=== PATIENT | female | born 1940 | race Caucasian/White ===

== ENCOUNTER 2016-05-12 11:28 | Outpatient (CLI) | payer MEDICARE, OTHER | END 2016-05-12 11:29 | disposition home or self-care (01) | DX: G47.33 Obstructive sleep apnea (adult) (pediatric) (principal) | CPT/HCPCS: 99214; G0463 ==

== ENCOUNTER 2016-06-09 09:15 | Outpatient (CLI) | payer MEDICARE, OTHER | END 2016-06-09 09:16 | disposition home or self-care (01) | DX: G47.33 Obstructive sleep apnea (adult) (pediatric) (principal) | CPT/HCPCS: 99214; G0463 ==

== ENCOUNTER 2016-09-08 08:39 | Outpatient (CLI) | payer MEDICARE, OTHER | END 2016-09-08 08:40 | disposition home or self-care (01) | LOC: SC 08:39 | PROVIDERS: ATTEND Nurse Practitioner Family | DX: G47.33 Obstructive sleep apnea (adult) (pediatric) (principal); G47.23 Circadian rhythm sleep disorder, irregular sleep wake type | CPT/HCPCS: 99214; G0463; 99212 ==

== ENCOUNTER 2016-09-17 08:00 | Outpatient (CLI) | payer MEDICARE, OTHER ==
[2016-09-17 19:22] LABS: ALBUMIN/GLOBULIN RATIO 1.6 (1.0-2.2); BILIRUBIN,TOTAL 0.7 mg/dL (0.2-1.0); BUN - BLOOD UREA NITROGEN 16 mg/dL (6-20); CALCIUM 9.4 mg/dL (8.5-10.3); CARBON DIOXIDE - CO2 28 mmol/L (21-32); CHLORIDE 98 mmol/L (101-111); CHOL/HDL RATIO 2.3 (<4.4); CHOLESTEROL 185 mg/dL; CREATININE 0.8 mg/dL (0.4-1.0); GFR - MDRD 70 (>89); GLUCOSE 84 mg/dL (70-100); HDL CHOLESTEROL 79 mg/dL; LDL/HDL RATIO 1.2 (<4.4); POTASSIUM 4.1 mmol/L (3.5-5.0); SODIUM 134 mmol/L (135-145); TOTAL PROTEIN 6.8 g/dL (6.7-8.2); TRIGLYCERIDES 45 mg/dL; VLDL CHOLESTEROL 9 mg/dL
[2016-09-17 19:40] LABS: BASOPHILS # (AUTO) 0.1 10^3/uL (0.0-0.1); EOSINOPHILS # (AUTO) 0.2 10^3/uL (0.0-0.7); EOSINOPHILS % (AUTO) 4.2 %; HCT - HEMATOCRIT 40.7 % (37.0-47.0); HGB - HEMOGLOBIN 13.4 g/dL (12.0-16.0); LYMPHOCYTES # (AUTO) 1.7 10^3/uL (1.5-3.5); LYMPHOCYTES % (AUTO) 30.6 %; MEAN CORPUSCULAR HEMOGLOBIN 29.6 pg (27.0-31.0); MEAN CORPUSCULAR HGB CONC 32.9 g/dL (32.0-36.0); MEAN PLATELET VOLUME 8.6 fL (7.9-10.8); MONOCYTES # (AUTO) 0.7 10^3/uL (0.0-1.0); MONOCYTES % (AUTO) 12.4 %; NEUTROPHILS # (AUTO) 2.9 10^3/uL (1.5-6.6); NEUTROPHILS % (AUTO) 51.8 %; NUCLEATED RED BLOOD CELLS AUTO 0.1 /100WBC; RED BLOOD COUNT 4.52 10^6/uL (4.20-5.40); UNCORRECTED WHITE BLOOD COUNT 5.6 x10^3/uL; WHITE BLOOD COUNT 5.6 x10^3/uL (4.8-10.8)
== END 2016-09-17 08:01 | disposition home or self-care (01) ==
LOC: LAB.R 08:00
PROVIDERS: ATTEND Internal Medicine
DX: E03.9 Hypothyroidism, unspecified (principal); I10 Essential (primary) hypertension; Z79.899 Other long term (current) drug therapy
CPT/HCPCS: 80053; 80061; 84443; 85025

== ENCOUNTER 2016-09-23 08:43 | Outpatient (CLI) | payer MEDICARE, OTHER ==
--- NOTE | 2016-09-23 11:29 | DEXA Report ---
DEXA SCAN: 09/23/2016 CLINICAL INDICATION: Postmenopausal. TECHNIQUE: Dual energy x-ray absorptiometry (DXA) was performed on a [employer] system. Regions measured are the AP spine, femoral neck, and, if needed, forearm. COMPARISON: None. In accordance with the International Society for Clinical Densitometry (ISCD) guidelines, data from previous exams may be reanalyzed using current recommendations and techniques. This is done to allow a more accurate basis for comparison with the current study. FINDINGS: The data for the lumbar spine is as follows: REGION BMD (g/cm/cm) T-SCORE Z-SCORE L1 0.827 -2.5 -0.4 L2 0.938 -2.2 -0.1 L3 1.090 -0.9 1.2 L4 1.085 -1.0 1.1 TOTAL 0.996 -1.5 0.6 NOTE: All evaluable vertebrae are used for classification. The data for the hip is as follows: REGION BMD (g/cm/cm) T-SCORE Z-SCORE Neck 0.787 -1.8 0.3 TOTAL 0.792 -1.7 0.3 NOTE: The femoral neck or total proximal femur, whichever is lowest, is used for classification. IMPRESSION: THE WHO CLASSIFICATION BASED ON THE INTERNATIONAL REFERENCE STANDARD IS OSTEOPENIA. THE FRACTURE RISK IS INCREASED. RECOMMENDATION: Patients with diagnosis of osteoporosis or osteopenia should have regular bone mineral density assessment. For those eligible for Medicare, routine testing is allowed once every 2 years. Testing frequency can be increased for patients who have rapidly progressing disease or for those who are receiving medical therapy to restore bone mass. COMMENT: World Health Organization (WHO) definitions for osteoporosis and osteopenia: NORMAL BMD: T-score at -1.0 or higher, fracture risk is low. OSTEOPENIA BMD: T-score between -1.0 and -2.5, fracture risk is increased. OSTEOPOROSIS BMD: T-score at -2.5 or lower, fracture risk high. National Osteoporosis Foundation recommends: 1. Obtain adequate dietary calcium (at least 1200 mg per day) and vitamin D (400 -800 international units per day). 2. Participate, as appropriate, in regular weightbearing and muscle- strengthening exercise. 3. Avoid tobacco use and reduce alcohol and caffeine intake. 4. For more detailed information see the website at www.NOF.org. MTDD
== END 2016-09-23 08:44 | disposition home or self-care (01) ==
LOC: DI 08:43
PROVIDERS: ATTEND Internal Medicine
DX: M85.89 Other specified disorders of bone density and structure, multiple sites (principal)
CPT/HCPCS: 77080

== ENCOUNTER 2016-10-02 13:34 | Outpatient (CLI) | payer MEDICARE, OTHER ==
--- NOTE | 2016-10-03 15:06 | Mammography Report ---
DIGITAL SCREENING MAMMOGRAM: 10/02/2016 CLINICAL INDICATION: A 76-year-old for screening. COMPARISON: 06/2014, 07/2011, 07/2010, 07/2009, 06/2008, 10/2006. TECHNIQUE: Routine CC and MLO projections were obtained of the breasts as well as bilateral laterall y exaggerated craniocaudal views. FINDINGS: The breasts again demonstrate heterogeneously dense fibroglandular parenchyma bilaterally. Punctate, typically benign calcifications are present. No suspicious masses, clustered microcalcif ications, or regions of architectural distortion are identified. IMPRESSION: BENIGN FINDINGS. RECOMMENDATION: Routine annual screening unless otherwise clinically indicated. BI-RADS category 2, benign findings. STANDARD QUALIFYING STATEMENTS 1. This examination was reviewed with the aid of Computer-Aided Detection (CAD). 2. A negative or benign imaging report should not delay biopsy if clinically suspicious findings are present. Consider surgical consultation if warranted. More than 5% of cancers are not identified by i maging. 3. Dense breasts may obscure an underlying neoplasm. JOB #: [id number] EXT JOB #:[id number]
== END 2016-10-02 13:35 | disposition home or self-care (01) ==
LOC: DI 13:34
PROVIDERS: ATTEND Internal Medicine
DX: Z12.31 Encounter for screening mammogram for malignant neoplasm of breast (principal)
CPT/HCPCS: 77067

== ENCOUNTER 2016-12-09 12:12 | Outpatient (CLI) | payer MEDICARE, OTHER ==
[2016-12-10 19:50] LABS: TEST RESULT REPORT
== END 2016-12-09 12:13 | disposition home or self-care (01) ==
LOC: LAB.R 12:12
PROVIDERS: ATTEND Internal Medicine
DX: R19.7 Diarrhea, unspecified (principal)
CPT/HCPCS: 81599; 82705; 83630; 87045; 87046; 87177; 87209; 87329; 87493

== ENCOUNTER 2017-04-29 09:12 | Day surgery (SDC) | payer MEDICARE, OTHER ==
[2017-04-29] MEDS ORDERED: LACTATED RINGERS 1,000 ML IV ONE (09:49)
[2017-04-29] MEDS ORDERED: fentaNYL 100 MCG/2 ML VIAL IVP ONE (10:18)
[2017-04-29] MEDS ORDERED: MIDAZOLAM 2 MG/2 ML VIAL IVP ONE (10:18)
--- NOTE | 2017-04-29 11:09 | PROCEDURE REPORT ---
DATE OF SERVICE: 04/29/2017 Physician: Agueda Garcia MD PROCEDURE PERFORMED: Colonoscopy. ENDOSCOPIST: Agueda Garcia MD PRIMARY CARE: Jason Tirado MD. INDICATION: Screening; last colonoscopy over 10 years ago. PREMEDICATIONS 1. Fentanyl 100 mcg. 2. Versed 5 mg intravenous titration. TOTAL SEDATION TIME: 27 minutes. DESCRIPTION: After informed consent was obtained, the patient was placed in left lateral decubitus position. The video colonoscope was introduced in the rectum and slowly advanced to the cecum. On slow withdrawal, mucosa was carefully examined. The scope was removed. The patient tolerated the procedure well. Of note is that the colon was extremely tortuous and required significant manipulation to get around. BLOOD LOSS: None. COMPLICATIONS: None. FINDINGS: Normal colonoscopy to cecum, though extremely tortuous. The patient is 76 and I would not suggest followup colonoscopy at her age and given the difficulty negotiating her colon. Besides she has had 2 negative colonoscopies 15 years apart. cc: Jason Tirado MD TD: 04/29/2017 11:08
[2017-04-29 11:32] VITALS: BP 124/71
== END 2017-04-29 09:13 | disposition home or self-care (01) ==
LOC: SDS 09:12
PROVIDERS: ATTEND Internal Medicine
PROC: 0DJD8ZZ Inspection of Lower Intestinal Tract, Via Natural or Artificial Opening Endoscopic (ICD-10-PCS; principal; 2017-04-29 10:00)
DX: Z12.11 Encounter for screening for malignant neoplasm of colon (principal); I10 Essential (primary) hypertension
CPT/HCPCS: G0121; J7120

== ENCOUNTER 2017-05-05 10:46 | Outpatient (CLI) | payer MEDICARE, OTHER | END 2017-05-05 10:47 | disposition home or self-care (01) | LOC: SC 10:46 | PROVIDERS: ATTEND Nurse Practitioner Family | DX: G47.33 Obstructive sleep apnea (adult) (pediatric) (principal) | CPT/HCPCS: 99214; G0463; 99212 ==

== ENCOUNTER 2017-09-24 08:00 | Outpatient (CLI) | payer MEDICARE, OTHER ==
[2017-09-24 15:54] LABS: BASOPHILS # (AUTO) 0.1 10^3/uL (0.0-0.1); EOSINOPHILS # (AUTO) 0.1 10^3/uL (0.0-0.7); EOSINOPHILS % (AUTO) 2.2 %; HGB - HEMOGLOBIN 14.3 g/dL (12.0-16.0); LYMPHOCYTES # (AUTO) 1.6 10^3/uL (1.5-3.5); LYMPHOCYTES % (AUTO) 27.4 %; MEAN CORPUSCULAR HEMOGLOBIN 29.7 pg (27.0-31.0); MEAN CORPUSCULAR HGB CONC 33.6 g/dL (32.0-36.0); MEAN CORPUSCULAR VOLUME 88.3 fL (81.0-99.0); MEAN PLATELET VOLUME 8.2 fL (7.9-10.8); MONOCYTES # (AUTO) 0.6 10^3/uL (0.0-1.0); NEUTROPHILS # (AUTO) 3.3 10^3/uL (1.5-6.6); NEUTROPHILS % (AUTO) 58.4 %; PLT - PLATELET COUNT 287 10^3/uL (130-450); WHITE BLOOD COUNT 5.7 x10^3/uL (4.8-10.8)
[2017-09-24 16:13] LABS: ALBUMIN 4.2 g/dL (3.2-5.5); ALBUMIN/GLOBULIN RATIO 1.3 (1.0-2.2); ALKALINE PHOSPHATASE 74 IU/L (42-121); ALT ALANINE AMINOTRANSFERASE 21 IU/L (10-60); AST ASPARTATE AMINOTRANSFERASE 21 IU/L (10-42); BUN - BLOOD UREA NITROGEN 17 mg/dL (6-20); CALCIUM 9.2 mg/dL (8.5-10.3); CARBON DIOXIDE - CO2 27 mmol/L (21-32); CHLORIDE 91 mmol/L (101-111); CHOL/HDL RATIO 2.1 (<4.4); CHOLESTEROL 249 mg/dL; CREATININE 0.9 mg/dL (0.4-1.0); GFR - MDRD 61 (>89); GLUCOSE 83 mg/dL (70-100); HDL CHOLESTEROL 117 mg/dL; LDL CHOLESTEROL,CALCULATED 118 mg/dL; SODIUM 129 mmol/L (135-145); TOTAL PROTEIN 7.4 g/dL (6.7-8.2); VLDL CHOLESTEROL 14 mg/dL
== END 2017-09-24 08:01 | disposition home or self-care (01) ==
LOC: LAB.R 08:00
PROVIDERS: ATTEND Internal Medicine
DX: M85.80 Other specified disorders of bone density and structure, unspecified site (principal); E03.9 Hypothyroidism, unspecified; I10 Essential (primary) hypertension
CPT/HCPCS: 80053; 80061; 83721; 84443; 85025

== ENCOUNTER 2017-11-02 09:08 | Outpatient (CLI) | payer MEDICARE, OTHER ==
[2017-11-02 15:53] LABS: CALCIUM 9.3 mg/dL (8.5-10.3); CREATININE 0.8 mg/dL (0.4-1.0)
== END 2017-11-02 09:09 | disposition home or self-care (01) ==
LOC: LAB.R 09:08
PROVIDERS: ATTEND Internal Medicine
DX: E87.1 Hypo-osmolality and hyponatremia (principal)
CPT/HCPCS: 80048

== ENCOUNTER 2018-01-27 08:45 | Outpatient (CLI) | payer MEDICARE, OTHER ==
[2018-01-27 14:13] LABS: CALCIUM 9.5 mg/dL (8.5-10.3); CREATININE 0.9 mg/dL (0.4-1.0)
== END 2018-01-27 23:59 | disposition home or self-care (01) ==
LOC: LAB.R 08:45
PROVIDERS: ATTEND Internal Medicine
DX: E87.1 Hypo-osmolality and hyponatremia (principal)
CPT/HCPCS: 80048

== ENCOUNTER 2018-05-26 13:04 | Outpatient (CLI) | payer MEDICARE, OTHER | END 2018-05-26 13:05 | disposition home or self-care (01) | LOC: SC 13:04 | PROVIDERS: ATTEND Nurse Practitioner Family | DX: G47.33 Obstructive sleep apnea (adult) (pediatric) (principal) | CPT/HCPCS: 99214; G0463; 99212 ==

== ENCOUNTER 2018-10-04 18:04 | Outpatient (CLI) | payer MEDICARE, OTHER ==
[2018-10-04 18:30] LABS: BASOPHILS # (AUTO) 0.1 10^3/uL (0.0-0.1); BASOPHILS % (AUTO) 0.8 %; EOSINOPHILS # (AUTO) 0.3 10^3/uL (0.0-0.7); EOSINOPHILS % (AUTO) 3.1 %; HGB - HEMOGLOBIN 14.1 g/dL (12.0-16.0); LYMPHOCYTES # (AUTO) 2.2 10^3/uL (1.5-3.5); LYMPHOCYTES % (AUTO) 24.8 %; MEAN CORPUSCULAR VOLUME 90.5 fL (81.0-99.0); MEAN PLATELET VOLUME 9.1 fL (7.9-10.8); MONOCYTES # (AUTO) 0.8 10^3/uL (0.0-1.0); MONOCYTES % (AUTO) 8.8 %; NEUTROPHILS # (AUTO) 5.5 10^3/uL (1.5-6.6); NEUTROPHILS % (AUTO) 62.4 %; PLT - PLATELET COUNT 275 10^3/uL (130-450); RED BLOOD COUNT 4.86 10^6/uL (4.20-5.40); WHITE BLOOD COUNT 8.8 x10^3/uL (4.8-10.8)
[2018-10-04 18:41] LABS: ALBUMIN 4.2 g/dL (3.2-5.5); ALBUMIN/GLOBULIN RATIO 1.3 (1.0-2.2); BILIRUBIN,TOTAL 0.5 mg/dL (0.2-1.0); CALCIUM 9.8 mg/dL (8.5-10.3); TOTAL PROTEIN 7.4 g/dL (6.7-8.2)
[2018-10-04 19:27] LABS: THYROID STIMULATING HORMONE 1.98 uIU/mL (0.34-5.60)
[2018-10-04 19:30] LABS: FREE T4 (FREE THYROXINE) 1.58 ng/dL (0.58-1.64)
== END 2018-10-04 18:05 | disposition home or self-care (01) ==
LOC: LAB 18:04
PROVIDERS: ATTEND Family Medicine
DX: I10 Essential (primary) hypertension (principal); E03.9 Hypothyroidism, unspecified; M19.90 Unspecified osteoarthritis, unspecified site
CPT/HCPCS: 36415; 80053; 84439; 84443; 84481; 85025

== ENCOUNTER 2018-12-15 08:00 | Outpatient (CLI) | payer MEDICARE, OTHER ==
[2018-12-15 12:20] LABS: BASOPHILS # (AUTO) 0.1 10^3/uL (0.0-0.1); BASOPHILS % (AUTO) 1.3 %; EOSINOPHILS # (AUTO) 0.2 10^3/uL (0.0-0.7); EOSINOPHILS % (AUTO) 3.1 %; HGB - HEMOGLOBIN 13.9 g/dL (12.0-16.0); LYMPHOCYTES # (AUTO) 1.3 10^3/uL (1.5-3.5); LYMPHOCYTES % (AUTO) 22.5 %; MEAN CORPUSCULAR HEMOGLOBIN 29.8 pg (27.0-31.0); MEAN CORPUSCULAR HGB CONC 32.3 g/dL (32.0-36.0); MEAN CORPUSCULAR VOLUME 92.3 fL (81.0-99.0); MEAN PLATELET VOLUME 10.1 fL (7.9-10.8); MONOCYTES # (AUTO) 0.6 10^3/uL (0.0-1.0); NEUTROPHILS # (AUTO) 3.4 10^3/uL (1.5-6.6); NEUTROPHILS % (AUTO) 61.9 %; PLT - PLATELET COUNT 308 10^3/uL (130-450); RED BLOOD COUNT 4.66 10^6/uL (4.20-5.40); RED CELL DISTRIBUTION WIDTH 13.6 % (12.0-15.0); WHITE BLOOD COUNT 5.6 x10^3/uL (4.8-10.8)
[2018-12-15 12:29] LABS: PT - PROTHROMBIN TIME 10.9 secs (9.9-12.6)
[2018-12-15 12:34] LABS: CALCIUM 9.5 mg/dL (8.5-10.3); CREATININE 0.9 mg/dL (0.4-1.0)
[2018-12-15 12:42] LABS: PARTIAL THROMBOPLASTIN TIME 31.7 secs (24.9-33.3)
== END 2018-12-15 23:59 | disposition home or self-care (01) ==
LOC: LAB.N 08:00
PROVIDERS: ATTEND Family Medicine
DX: Z01.812 Encounter for preprocedural laboratory examination (principal); I10 Essential (primary) hypertension; E03.9 Hypothyroidism, unspecified
CPT/HCPCS: 36415; 80048; 85025; 85610; 85730

== ENCOUNTER 2019-05-18 17:07 | Outpatient (CLI) | payer MEDICARE, OTHER | END 2019-05-18 17:08 | disposition home or self-care (01) | LOC: COV 17:07 | PROVIDERS: ATTEND Family Medicine | DX: R05 Cough (principal) ==

== ENCOUNTER 2019-05-24 11:00 | Outpatient (CLI) | payer MEDICARE, OTHER ==
[2019-05-24 11:16] LABS: BASOPHILS # (AUTO) 0.1 10^3/uL (0.0-0.1); BASOPHILS % (AUTO) 0.8 %; EOSINOPHILS # (AUTO) 0.1 10^3/uL (0.0-0.7); EOSINOPHILS % (AUTO) 0.8 %; HGB - HEMOGLOBIN 15.5 g/dL (12.0-16.0); LYMPHOCYTES # (AUTO) 1.2 10^3/uL (1.5-3.5); LYMPHOCYTES % (AUTO) 15.1 %; MEAN CORPUSCULAR HEMOGLOBIN 29.9 pg (27.0-31.0); MEAN CORPUSCULAR HGB CONC 33.5 g/dL (32.0-36.0); MEAN CORPUSCULAR VOLUME 89.2 fL (81.0-99.0); MONOCYTES # (AUTO) 0.7 10^3/uL (0.0-1.0); MONOCYTES % (AUTO) 9.2 %; NEUTROPHILS # (AUTO) 5.9 10^3/uL (1.5-6.6); NEUTROPHILS % (AUTO) 73.7 %; PLT - PLATELET COUNT 309 10^3/uL (130-450); RED BLOOD COUNT 5.19 10^6/uL (4.20-5.40); RED CELL DISTRIBUTION WIDTH 12.5 % (12.0-15.0); WHITE BLOOD COUNT 7.9 x10^3/uL (4.8-10.8)
[2019-05-24 11:30] LABS: ALBUMIN 4.8 g/dL (3.2-5.5); ALBUMIN/GLOBULIN RATIO 1.7 (1.0-2.2); BILIRUBIN,TOTAL 0.9 mg/dL (0.2-1.0); CALCIUM 9.8 mg/dL (8.5-10.3); CREATININE 0.9 mg/dL (0.4-1.0); TOTAL PROTEIN 7.7 g/dL (6.7-8.2)
--- NOTE | 2019-05-24 12:21 | XRAY Report ---
Reason: LAB ,SHORTNESS OF BREATH,BENIGN ESSENTIAL HYPER Procedure Date: 05/24/2019 Accession Number: [id number] / [id number] Procedure: XR - Chest 2 View X-Ray CPT Code: 99943 Final Report FULL RESULT: EXAM: CHEST RADIOGRAPHY EXAM DATE: 05/24/2019 11:31 AM. CLINICAL HISTORY: Wheezing, shortness of breath, benign essential hypertension. COMPARISON: None. TECHNIQUE: 2 views. FINDINGS: Lungs/Pleura: Moderate to large left pleural effusion obscuring slightly more than half of the left hemithorax. Dense left mid and lower lung opacification. No pneumothorax. Mediastinum: Heart is partly obscured although likely enlarged. Aorta is tortuous. Other: Degenerative changes of the thoracic spine and both shoulders. IMPRESSION: 1. Moderate to large left pleural effusion. 2. Dense left mid and lower lung opacification. Findings discussed with Dr. Brizuela at 1141 hrs on 05/24/2019. RADIA
--- NOTE | 2019-05-24 13:20 | CT Report ---
Reason: DECREASED BREATH SOUNDS, SOB Procedure Date: 05/24/2019 Accession Number: [id number] / [id number] Procedure: CT - CHEST WO CPT Code: Final Report FULL RESULT: EXAM: CT CHEST EXAM DATE: 05/24/2019 12:51 PM. CLINICAL HISTORY: DECREASED BREATH SOUNDS, SOB. COMPARISONS: None. TECHNIQUE: Routine helical CT imaging was performed through the chest. IV contrast: None. Reconstructions: Coronal and sagittal. In accordance with CT protocol optimization, one or more of the following dose reduction techniques were utilized for this exam: automated exposure control, adjustment of mA and/or KV based on patient size, or use of iterative reconstructive technique. FINDINGS: Lungs/Pleura: Large left pleural effusion is seen with CT density of 15 HU consistent with simple fluid. Resultant right lower lung predominant airspace consolidation is evident, a large component which likely reflects compressive atelectasis. Underlying process such as infection or malignancy within the consolidated lung cannot be excluded. No focal right-sided airspace consolidation. Indeterminate 5 mm right lower lobe pulmonary nodule (6/71). Mild bilateral central bronchial wall thickening is noted likely reflect and central airways disease.. No pneumothorax. Mediastinum: Focal calcification in the right thyroid without discernible nodule on CT. Normal heart size. No pericardial effusion. Mitral annular calcification noted. No pathologically enlarged mediastinal or hilar lymph nodes. Normal caliber thoracic aorta. Bones: Osteopenia. Multilevel degenerative disk disease in the spine. No focal suspicious osseous lesions. Visualized Abdomen: Unremarkable. Other: None. IMPRESSION: 1. Large left pleural effusion is seen with CT density of simple fluid. Diagnostic thoracentesis should be considered. 2. Left lower lung predominant consolidation is noted a large component of which likely reflects compressive atelectasis. Underlying process such as infection or malignancy not excluded within the consolidated lung. 3. No focal right-sided consolidation or right pleural effusion. 4. 5 mm right lower lobe pulmonary nodule is seen. Consider noncontrast chest CT in 12 months for follow-up per Fleischner Society guidelines. 5. No pathologic mediastinal or hilar lymphadenopathy is evident. RADIA
== END 2019-05-24 11:01 | disposition home or self-care (01) ==
LOC: LAB 11:00 → DI 11:01
PROVIDERS: ATTEND Family Medicine
DX: J90 Pleural effusion, not elsewhere classified (principal); J18.1 Lobar pneumonia, unspecified organism; R91.1 Solitary pulmonary nodule; I10 Essential (primary) hypertension; E03.9 Hypothyroidism, unspecified
CPT/HCPCS: 36415; 71046; 71250; 80053; 84443; 85025

== ENCOUNTER 2019-06-14 10:22 | Outpatient (CLI) | payer MEDICARE, OTHER ==
--- NOTE | 2019-06-15 09:44 | XRAY Report ---
Reason: PLEURAL EFFUSION Procedure Date: 06/14/2019 Accession Number: [id number] / [id number] Procedure: XR - Chest 2 View X-Ray CPT Code: 71831 Final Report FULL RESULT: EXAM: CHEST RADIOGRAPHY EXAM DATE: 06/14/2019 10:42 AM. CLINICAL HISTORY: PLEURAL EFFUSION. COMPARISON: CHEST 2 VIEW 05/24/2019 11:21 AM. TECHNIQUE: 2 views. FINDINGS: Lungs/Pleura: Compared to the prior study, there is a smaller residual moderate left pleural tissue with dense left lower lobe opacities. No pneumothorax. No significant right effusion. No new consolidations are identified. Lungs are hyperinflated. Mediastinum: Stable cardiomediastinal silhouette. Other: None. IMPRESSION: 1. Slight decrease in the size of the moderate left pleural effusion. No new right pleural effusion. No pneumothorax. 2. Dense retrocardiac opacities could represent atelectasis or infiltrates. RADIA
== END 2019-06-14 10:23 | disposition home or self-care (01) ==
LOC: DI 10:22
PROVIDERS: ATTEND Internal Medicine Sleep Medicine
DX: J90 Pleural effusion, not elsewhere classified (principal); R91.8 Other nonspecific abnormal finding of lung field
CPT/HCPCS: 71046

== ENCOUNTER 2019-06-30 13:30 | Outpatient (CLI) | payer MEDICARE, OTHER ==
--- NOTE | 2019-06-30 10:46 | SLEEP CARE CONSULTATION ---
Information from patient questionnaire entered by Nery Alvares. I have reviewed and concur with the information entered by Nery Alvares. This document represents the service I personally performed and the decisions made by me, Leola Johnson, RN, MSN, MEDICAL HOUSEKEEPER. History of Present Illness Service Date and Time: 06/30/2019 1000 Previous diagnosis: Mild, Obstructive Sleep Apnea-Hypopnea Syndrome AHI: 11.7 Reason for follow up: annual Equipment type: CPAP Equipment obtained from: [facility] (not recieving supplies in a timely manner -) Mask style: Nasal Mask brand: Respironics (Dreamwear) Backup mask available: Yes (old mask) Last cushion change: 3 weeks ago CPAP Compliance Data - Data Reviewed with Patient Average duration of nightly device use: 7h 34m Compliance rate %: 77.2 Current pressure setting (cmH2O): 9-12 Humidity settin Heated hose settin Average residual AHI: 3.0 Average large leak: 19m 14s Subjective Patient concerns: reports: dry mouth, nose, throat (occasional dry mouth that she feels is 1-2 times a month and probably due to mouth), other (settings). denies: aerophagia, mask discomfort, air blowing in eyes, mask leak noise, condensation in mask/hose, nasal congestion, epistaxis Observed to snore while using device: No (single ) Current pressure setting perceived as: comfortable (no change except no longer wakes to use the bathroom. She was not sleepy before CPAP use.) On therapy, patient: reports: other (no change except no longer has nocturia / was not tired before CPAP). denies: drowsiness while driving Initial [place] Sleepiness Scale score: 4 Allergies and Home Medications Home medication list reviewed: No (no changes / on antihypertension and thyroid) Review of Systems Review of systems same as previous: No (shortness of breath since [place] trip/2 thoracentesi / pulmomologist) Physical Exam Height: 5 ft 4 in Weight: 123 lb (home weight) Body Mass Index: 21.1 BMI Classification: Healthy weight Impression and Plan 1. Obstructive Sleep Apnea-Hypopnea Syndrome, mild, with good treatment compliance and good apnea control. On CPAP therapy, the patient has better sleep quality and is more rested overall. For supply concerns, if still problems getting equipment she is to contact my office to discuss options of needing to contact [employer] from office or transfer to another company. To reduce mask leaks, she is to change monthly instead of randomly. In addition, I discussed cleaning devices and recent FDA warning. Currently I do not recommend use of cleaning devices. Review of general cleaning of equipment discussed and clarified. Patient had recently watched a [employer] video about how to change settings on her CPAP and concerned she had changed hers wrong. I reviewed her compliance data with her and assured her all settings correct. In addition, we discussed methods to avoid supine sleep if unable to use CPAP as her apnea is more severe supine. Patient's apnea severity and rationale for treatment to reduce apnea, improve sleep quality and reduce cardiovascular and cerebrovascular events was reviewed. I also reviewed the benefit of consistent device use of CPAP for hypertension. I also discussed how significant weight change can affect apnea and her CPAP pressure. Symptoms to report discussed. * Continue auto CPAP pressure at 9-12 cmH2O * Change mask cushion monthly * Notify me if snoring with mask or feeling that the pressure is too much or too little * Contact this office if continued supply problems * Maintain weight * Call this office if any problems using CPAP * Return for follow up in 1 year , or sooner if concerns arise Visit Type: Telehealth Video (to reduce risk of Covid 19 exposure) Video Type: BringMeTheNews Patient Location: Home Location of Provider: Home Patient agrees to have their insurance billed: Yes Time Spent with Patient (minutes): 30 Provider Statement: I spent 100% of the Telehealth Video Call with the patient with greater than 50% spent counseling the patient and coordination of care.
== END 2019-06-30 13:31 | disposition home or self-care (01) ==
LOC: SC 13:30
PROVIDERS: ATTEND Nurse Practitioner Family
DX: G47.33 Obstructive sleep apnea (adult) (pediatric) (principal)

== ENCOUNTER 2019-12-13 13:40 | Outpatient (CLI) | payer MEDICARE, OTHER ==
[2019-12-13 18:54] LABS: THYROID STIMULATING HORMONE 1.46 uIU/mL (0.34-5.60)
[2019-12-13 18:56] LABS: FREE T3 2.95 pg/mL (2.5-3.9); FREE T4 (FREE THYROXINE) 1.42 ng/dL (0.58-1.64)
== END 2019-12-13 23:59 | disposition home or self-care (01) ==
LOC: LAB.WCP 13:40
PROVIDERS: ATTEND Family Medicine
DX: E03.9 Hypothyroidism, unspecified (principal)
CPT/HCPCS: 36415; 84439; 84443; 84481

== ENCOUNTER 2019-12-29 09:45 | Outpatient (CLI) | payer MEDICARE, OTHER ==
[2019-12-29 09:56] LABS: BASOPHILS # (AUTO) 0.1 10^3/uL (0.0-0.1); EOSINOPHILS # (AUTO) 0.6 10^3/uL (0.0-0.7); EOSINOPHILS % (AUTO) 7.2 %; LYMPHOCYTES # (AUTO) 1.8 10^3/uL (1.5-3.5); LYMPHOCYTES % (AUTO) 21.7 %; MEAN CORPUSCULAR HGB CONC 32.3 g/dL (32.0-36.0); MEAN PLATELET VOLUME 8.4 fL (7.9-10.8); MONOCYTES # (AUTO) 0.8 10^3/uL (0.0-1.0); MONOCYTES % (AUTO) 9.8 %; NEUTROPHILS % (AUTO) 59.7 %; PLT - PLATELET COUNT 440 10^3/uL (130-450); RED BLOOD COUNT 4.48 10^6/uL (4.20-5.40); RED CELL DISTRIBUTION WIDTH 13.7 % (12.0-15.0); WHITE BLOOD COUNT 8.4 x10^3/uL (4.8-10.8)
[2019-12-29 10:09] LABS: ALBUMIN 3.6 g/dL (3.2-5.5); BILIRUBIN,TOTAL 0.6 mg/dL (0.2-1.0); CALCIUM 9.4 mg/dL (8.5-10.3); CREATININE 0.6 mg/dL (0.4-1.0); TOTAL PROTEIN 7.2 g/dL (6.7-8.2)
== END 2019-12-29 09:46 | disposition home or self-care (01) ==
LOC: LAB 09:45
PROVIDERS: ATTEND Nurse Practitioner Adult Health
DX: C45.0 Mesothelioma of pleura (principal)
CPT/HCPCS: 36415; 80053; 85025

== ENCOUNTER 2020-01-08 13:01 | Outpatient (CLI) | payer MEDICARE, OTHER ==
--- NOTE | 2020-01-08 13:57 | Ultrasound Report ---
PROCEDURE: Chest INDICATIONS: MALIGNANT MESOTHELIOMA TECHNIQUE: Real-time scanning was performed, and a suitable site was marked by the mesh man for thoracentesis to be performed by the referring clinician. COMPARISON: None. FINDINGS: There is a moderate loculated pleural effusion spanning 10 cm x 6.43 m x 5.9 cm. The indwelling yaz ter within the pleural space is not seen. IMPRESSION: Moderate loculated pleural effusion. Nonvisualization of drainage catheter. Reviewed by: Mary Guerrier MD on 01/08/2020 12:55 PM [facility] Approved by: Mary Guerrier MD on 01/08/2020 12:55 PM [facility] Station ID: [id number]
== END 2020-01-08 13:02 | disposition home or self-care (01) ==
LOC: DI 13:01
DX: C45.9 Mesothelioma, unspecified (principal); J91.8 Pleural effusion in other conditions classified elsewhere
CPT/HCPCS: 76604

== ENCOUNTER 2020-03-14 16:34 | Outpatient (CLI) | payer MEDICARE, OTHER ==
--- NOTE | 2020-03-14 18:40 | XRAY Report ---
PROCEDURE: Chest 2 View X-Ray INDICATIONS: PLEURAL EFFUSION IN OTHER CONDITIONS TECHNIQUE: 2 view(s) of the chest. COMPARISON: 06/14/2019. FINDINGS: Surgical changes and devices: None. Lungs and pleura: Moderate-sized left-sided pleural effusion. Left basilar consolidation. Mediastinum: Mediastinal contours are normal. Heart size is normal. Bones and chest wall: No suspicious bony abnormalities. Soft tissues appear unremarkable. IMPRESSION: 1. Moderate-sized left-sided pleural effusion. 2. Left basal consolidation which could represent compressive atelectasis, aspiration or pneumonia. Reviewed by: Morelia Hatch MD, PhD on 03/14/2020 5:39 PM [facility] Approved by: Morelia Hatch MD, PhD on 03/14/2020 5:39 PM [facility] Station ID: [id number]
== END 2020-03-14 16:35 | disposition home or self-care (01) ==
LOC: DI.N 16:34
PROVIDERS: ATTEND Family Medicine
DX: J90 Pleural effusion, not elsewhere classified (principal); R91.8 Other nonspecific abnormal finding of lung field

== ENCOUNTER 2020-04-10 12:19 | Outpatient (CLI) | payer MEDICARE, OTHER ==
[2020-04-10 12:27] LABS: BASOPHILS # (AUTO) 0.1 10^3/uL (0.0-0.1); BASOPHILS % (AUTO) 0.8 %; EOSINOPHILS # (AUTO) 0.2 10^3/uL (0.0-0.7); EOSINOPHILS % (AUTO) 2.2 %; HGB - HEMOGLOBIN 13.9 g/dL (12.0-16.0); LYMPHOCYTES # (AUTO) 1.3 10^3/uL (1.5-3.5); LYMPHOCYTES % (AUTO) 12.3 %; MEAN CORPUSCULAR HEMOGLOBIN 28.7 pg (27.0-31.0); MEAN CORPUSCULAR HGB CONC 32.3 g/dL (32.0-36.0); MEAN CORPUSCULAR VOLUME 88.7 fL (81.0-99.0); MEAN PLATELET VOLUME 8.9 fL (7.9-10.8); MONOCYTES # (AUTO) 0.9 10^3/uL (0.0-1.0); NEUTROPHILS # (AUTO) 7.7 10^3/uL (1.5-6.6); NEUTROPHILS % (AUTO) 75.3 %; PLT - PLATELET COUNT 366 10^3/uL (130-450); RED BLOOD COUNT 4.85 10^6/uL (4.20-5.40); RED CELL DISTRIBUTION WIDTH 13.1 % (12.0-15.0); WHITE BLOOD COUNT 10.3 x10^3/uL (4.8-10.8)
[2020-04-10 12:31] LABS: PT - PROTHROMBIN TIME 11.5 secs (9.9-12.6)
[2020-04-10 12:38] LABS: PARTIAL THROMBOPLASTIN TIME 28.1 secs (24.9-33.3)
--- NOTE | 2020-04-10 14:23 | XRAY Report ---
PROCEDURE: Post Thoracentesis 1V CXR INDICATIONS: POST THORACENTESIS TECHNIQUE: One view of the chest was acquired. COMPARISON: Chest x-ray 2 view, . FINDINGS: Surgical changes and devices: None. Lungs and pleura: No pneumothorax. Small residual left pleural effusion. Lucency in the left lung ba se is noted, which could represent a small loculated hydropneumothorax component. There is increased interstitial marking in left lung. Mediastinum: Mediastinal contours appear normal. Heart size is increased. Bones and chest wall: No suspicious bony lesions. Overlying soft tissues appear unremarkable. IMPRESSION: 1. No pneumothorax. 2. Small residual left effusion. The left lung bases lucent which could represent small component of loculated hydropneumothorax. 3. Increased interstitial markings in left lung. 4. Moderate cardiomegaly. Reviewed by: Matheus Pichardo MD on 04/10/2020 2:22 PM PST Approved by: Matheus Pichardo MD on 04/10/2020 2:22 PM PST Station ID: [id number]
--- NOTE | 2020-04-10 14:41 | Ultrasound Report ---
PROCEDURE: Thoracentesis Puncture INDICATIONS: SHORTNESS OF BREATH TECHNIQUE: The indications, alternatives, benefits, risks, and complications of the procedure were explained to the patient. Written informed consent was obtained and placed in the chart. The chest was examined sonographically, and an appropriate site was chosen for thoracentesis. The skin was prepared and jodi ped in the usual sterile fashion, and 1% lidocaine was infiltrated from the skin down through the ple ural surface. A 19-gauge catheter-covered needle was then introduced into the pleural space, the cat heter was advanced and the needle was withdrawn, and thereafter pleural fluid was aspirated. The cat heter was then removed and a dressing was applied. COMPARISON: Chest x-ray 2 view, 03/14/2020. FINDINGS: Access site: Left hemithorax. Needle: One-Step centesis catheter with introducer needle. Fluid volume and description: 250 mL; yellow, slightly cloudy Fluid sent for diagnostic testing: Not requested by referring physician. Medications: 1% lidocaine for local anaesthesia. Complications: None; post-procedural chest radiograph is pending to assess for pneumothorax. IMPRESSION: Successful ultrasound-guided thoracentesis. The patient reports slight improvement in b reathing. Reviewed by: Matheus Pichardo MD on 04/10/2020 2:40 PM PST Approved by: Matheus Pichardo MD on 04/10/2020 2:40 PM PST Station ID: [id number]
== END 2020-04-10 12:20 | disposition home or self-care (01) ==
LOC: DI 12:19
PROVIDERS: ATTEND Nurse Practitioner
DX: C45.0 Mesothelioma of pleura (principal); J91.0 Malignant pleural effusion
CPT/HCPCS: 32555; 36415; 85025; 85610; 85730

== ENCOUNTER 2020-07-05 11:40 | Outpatient (CLI) | payer MEDICARE, OTHER ==
--- NOTE | 2020-07-05 12:03 | SLEEP CARE CONSULTATION ---
Information from patient questionnaire entered by Vijaya Gallegos. I have reviewed and concur with the information entered by Vijaya Gallegos. This document represents the service I personally performed and the decisions made by , Beatriz Weber ARNP. History of Present Illness Service Date and Time: 07/05/2020 1140 Previous diagnosis: Mild, Obstructive Sleep Apnea-Hypopnea Syndrome AHI: 11.7 (in 2016) Reason for follow up: annual (last seen 79560) Equipment type: CPAP Equipment obtained from: [facility] (getting supplies as needed) Mask style: Nasal Mask brand: Respironics (Dreamwear) Backup mask available: Yes (old mask) Last cushion change: 3 weeks ago Prior sleep studies: Yes Year and Where: 2016 - [facility] Type of Sleep Study: Polysomnography HPI additional information: OBEY GALLEGOS was diagnosed to have mild, AHI 11.7, obstructive sleep apnea- hypopnea syndrome and returns via Telehealth visit today for CPAP therapy annual follow-up. CPAP Compliance Data - Data Reviewed with Patient Average duration of nightly device use: 8 hr 16 min Compliance rate %: 98.9 (180 days) Current pressure setting (cmH2O): 9-12 Humidity settin Heated hose settin Average residual AHI: 2.1 Average large leak: 12 min 41 sec Subjective Patient concerns: reports: dry mouth, nose, throat (occasional, using chin strap). denies: aerophagia, mask discomfort, air blowing in eyes, mask leak noise, condensation in mask/hose, nasal congestion, epistaxis, other Observed to snore while using device: No Current pressure setting perceived as: comfortable On therapy, patient: reports: sleeping better, awakening more refreshed, being more awake and alert during the day, more rested overall. denies: drowsiness while driving Initial [place] Sleepiness Scale score: 4 (in 2016) Current [place] Sleepiness Scale score: 4 Allergies and Home Medications Home medication list reviewed: Yes Allergy and home medication list: Folic acid Chemotherapy stopped Tumeric Review of Systems Review of systems same as previous: No (Mesothelioma cancer) Physical Exam Vital signs obtained and entered by: Telehealth visit to reduce exposure during Covid pandemic Height: 5 ft 4 in Impression and Plan 1. Obstructive Sleep Apnea-Hypopnea Syndrome, mild, with good treatment compliance and good apnea control. On CPAP therapy, the patient has better sleep quality and is more rested overall. She states she occasionally was sleeping with her mouth open and was having some oral dryness. She used a makeshift chinstrap to keep her mouth closed and this has been working well. She does gets some soreness on the sides of her face from the material and asked what she could do. I advised her to call her DME supplier and have them send her a chinstrap to use. Hopefully this is more comfortable. She has a new diagnosis of Mesothelioma cancer and is on chemotherapy. Patient's apnea severity and rationale for treatment to reduce apnea, improve sleep quality and reduce cardiovascular and cerebrovascular events was reviewed. I also reviewed the benefit of consistent device use of CPAP for hypertension. * Continue auto CPAP pressure at 9-12 cmH2O * Notify me if snoring with mask or feeling that the pressure is too much or too little * Attempt to lose weight * Call this office if any problems using CPAP * Return for follow up in 1 year, or sooner if concerns arise Counseling Topics: Spare mask, Weight loss health impact Visit Type: Telehealth Video Video Type: VSee Patient Location: Home Location of Provider: Office Patient agrees and consents to this telehealth visit type: Yes Patient agrees to have their insurance billed: Yes Time Spent with Patient (minutes): 22 Provider Statement: I spent 100% of the Telehealth Video Call with the patient with greater than 50% spent counseling the patient and coordination of care.
== END 2020-07-05 11:41 | disposition home or self-care (01) ==
LOC: SC 11:40
PROVIDERS: ATTEND Nurse Practitioner Family
DX: G47.33 Obstructive sleep apnea (adult) (pediatric) (principal)

== ENCOUNTER 2020-12-07 07:00 | Outpatient (CLI) | payer MEDICARE, OTHER | END 2020-12-07 23:59 | disposition home or self-care (01) | LOC: LAB 07:00 | PROVIDERS: ATTEND Family Medicine | DX: R39.9 Unspecified symptoms and signs involving the genitourinary system (principal) | CPT/HCPCS: 87077; 87086; 87181 ==

== ENCOUNTER 2021-03-13 08:14 | Outpatient (CLI) | payer MEDICARE, OTHER ==
[2021-03-13 09:19] VITALS: BP 166/100
--- NOTE | 2021-03-13 09:19 | SLEEP CARE CONSULTATION ---
Information from patient questionnaire entered by Jake Locke MA. I have reviewed and concur with the information entered by Jake Locke MA. This document represents the service I personally performed and the decisions made by , Beatriz Weber ARNP. History of Present Illness Service Date and Time: 03/13/2021 0814 Previous diagnosis: Mild, Obstructive Sleep Apnea-Hypopnea Syndrome AHI: 11.7 (in 2015) Reason for follow up: other (8 MONTH F/U , RX FOR NEW MACHINE) Equipment type: CPAP Equipment obtained from: Other ([facility]; no supplies) Mask style: Nasal Backup mask available: Yes (old mask) Last cushion change: 3 weeks ago Prior sleep studies: Yes Year and Where: 2015 - [facility] Type of Sleep Study: Polysomnography HPI additional information: OBEY GALLEGOS was diagnosed to have mild, AHI 11.7, obstructive sleep apnea- hypopnea syndrome and returned today for CPAP therapy 8 month follow-up. Sleep Study - Results Type of Sleep Study: Polysomnography Prior sleep studies: Yes Year and Where: 2015 - [facility] CPAP Compliance Data - Data Reviewed with Patient Average duration of nightly device use: 8 HOURS 56 MINUTES Compliance rate %: 99.4 Current pressure setting (cmH2O): 9-12 Humidity settin Heated hose settin Average residual AHI: 1.7 Average large leak: 14 MINUTES 25 SECONDS Subjective Missed days of use due to: reports: travel Patient concerns: reports: air blowing in eyes, dry mouth, nose, throat (her mouth will fall open and she gets dry mouth). denies: aerophagia, mask discomfort, mask leak noise, condensation in mask/hose, nasal congestion, epistaxis, other Observed to snore while using device: No Current pressure setting perceived as: comfortable On therapy, patient: reports: sleeping better, awakening more refreshed, being more awake and alert during the day, more rested overall. denies: drowsiness while driving Initial [place] Sleepiness Scale score: 4 (in 2015) Current [place] Sleepiness Scale score: 1 (2021) Allergies and Home Medications Home medication list reviewed: Yes (Linparza for her Mesothelioma (1 week)) Review of Systems Review of systems same as previous: No (Mesothelioma (last 2 years)) Physical Exam Vital signs obtained and entered by: LAQUITA AMAYA Blood Pressure: 166/100 (LEFT, PULSE 107) Cuff size: wrist Heart Rate: 101 (WILL SEE DR FOR HHR) O2 Saturation: 92 (WITH PAPER MASK) Height: 5 ft 4 in Weight: 127 lb (WITH CLOTHES) Body Mass Index: 21.8 BMI Classification: Healthy weight Impression and Plan 1. Obstructive Sleep Apnea-Hypopnea Syndrome, mild, with excellent treatment compliance and good apnea control. On CPAP therapy, the patient has better sleep quality and is more rested overall. Patient has a Dreamstation and would like to get a new device that is not on the recall. Patient has already registered their device for the recall. Patient denies any black particles seen in machine or hoses, any unusual odors coming from device. Patient has not experienced any physical symptoms such as upper airway irritation, headache, skin or eye irritation, asthma, nausea/vomiting, difficulty breathing or chest pain. If patient is not able to sleep due to waking up choking, gasping for air or other respiratory distress that they may decide to continue using it until it is eithe r replaced or repaired. Since the patients current machine is at least 5 years old the patient is opting to update their device with a device that is not on the recall. Patient voiced understanding and agreement with plan.A DWO prescription will be made. Compliance guidelines for new device and follow up discussed. Patient would like to try a full face mask because she finds even with using a chin strap her mouth is coming open and causing dry mouth. Oral dryness can be reduced by adjusting humidity setting higher or heated hose lower or by adjusting both settings. Patient's apnea severity and rationale for treatment to reduce apnea, improve sleep quality and reduce cardiovascular and cerebrovascular events was reviewed. I also reviewed the benefit of consistent device use of CPAP for hypertension. 2. Elevated blood pressure in patient with hypertension. Her blood pressure was elevated at beginning of appointment was 166/100. After patient had been sitting in exam room and was no longer feeling rushed her blood pressure was 142/79 with a heart rate of 89. She was in a yoder to get to her appointment today and suffers shortness of breath from Mesothelioma. * Continue auto CPAP pressure at 9-12 cmH2O * Update device * Mask refitting for full face mask * Notify me if snoring with mask or feeling that the pressure is too much or too little * Maintain a healthy weight * Call this office if any problems using CPAP * Return for follow up one month after obtaining new device, or sooner if concerns arise Counseling Topics: Spare mask, Weight control Visit Type: In Office Time Spent with Patient (minutes): 24 Provider Statement: I spent 100% of the Face to Face Visit with the patient with greater than 50% spent counseling the patient and coordination of care.
== END 2021-03-13 08:15 | disposition home or self-care (01) ==
LOC: SC 08:14
PROVIDERS: ATTEND Nurse Practitioner Family
DX: G47.33 Obstructive sleep apnea (adult) (pediatric) (principal); I10 Essential (primary) hypertension
CPT/HCPCS: 99213; G0463; 99212

== ENCOUNTER 2021-03-15 07:16 | Outpatient (CLI) | payer MEDICARE, OTHER ==
[2021-03-15 11:51] LABS: BASOPHILS # (AUTO) 0.1 10^3/uL (0.0-0.1); BASOPHILS % (AUTO) 0.7 %; EOSINOPHILS # (AUTO) 0.1 10^3/uL (0.0-0.7); EOSINOPHILS % (AUTO) 0.9 %; HCT - HEMATOCRIT 36.7 % (37.0-47.0); HGB - HEMOGLOBIN 11.3 g/dL (12.0-16.0); LYMPHOCYTES # (AUTO) 1.2 10^3/uL (1.5-3.5); LYMPHOCYTES % (AUTO) 9.6 %; MEAN CORPUSCULAR HEMOGLOBIN 28.6 pg (27.0-31.0); MEAN CORPUSCULAR HGB CONC 30.8 g/dL (32.0-36.0); MEAN CORPUSCULAR VOLUME 92.9 fL (81.0-99.0); MONOCYTES # (AUTO) 1.4 10^3/uL (0.0-1.0); NEUTROPHILS # (AUTO) 9.7 10^3/uL (1.5-6.6); NEUTROPHILS % (AUTO) 76.9 %; PLT - PLATELET COUNT 565 10^3/uL (130-450); RED BLOOD COUNT 3.95 10^6/uL (4.20-5.40); RED CELL DISTRIBUTION WIDTH 15.5 % (12.0-15.0); WHITE BLOOD COUNT 12.6 x10^3/uL (4.8-10.8)
[2021-03-15 12:06] LABS: ALBUMIN 3.3 g/dL (3.2-5.5); ALBUMIN/GLOBULIN RATIO 0.8 (1.0-2.2); BILIRUBIN,TOTAL 0.3 mg/dL (0.2-1.0); CALCIUM 9.7 mg/dL (8.5-10.3); CREATININE 0.8 mg/dL (0.4-1.0); POTASSIUM 4.4 mmol/L (3.5-5.0); TOTAL PROTEIN 7.6 g/dL (6.7-8.2)
[2021-03-15 12:28] LABS: THYROID STIMULATING HORMONE 8.04 uIU/mL (0.34-5.60)
[2021-03-15 12:29] LABS: FREE T3 3.39 pg/mL (2.5-3.9)
[2021-03-15 12:30] LABS: FREE T4 (FREE THYROXINE) 1.36 ng/dL (0.58-1.64)
== END 2021-03-15 07:17 | disposition home or self-care (01) ==
LOC: LAB.N 07:16
PROVIDERS: ATTEND Family Medicine
DX: C45.0 Mesothelioma of pleura (principal); J91.8 Pleural effusion in other conditions classified elsewhere; I47.1 Supraventricular tachycardia; I10 Essential (primary) hypertension; E03.9 Hypothyroidism, unspecified; G47.33 Obstructive sleep apnea (adult) (pediatric)
CPT/HCPCS: 36415; 80053; 84439; 84443; 84481; 85025

== ENCOUNTER 2021-03-15 08:59 | Outpatient (CLI) | payer MEDICARE, OTHER ==
--- NOTE | 2021-03-15 09:55 | XRAY Report ---
PROCEDURE: Chest 2 View X-Ray INDICATIONS: PLEURAL EFFUSION TECHNIQUE: 2 view(s) of the chest. COMPARISON: CXR 03/14/2020. CT chest 05/24/2019. FINDINGS: Surgical changes and devices: None. Lungs and pleura: Chronic large left pleural effusion. Left pleural thickening. No right pleural effu valerio is appreciated. Hazy airspace opacity in the left lung, increased. Right lung appears clear. Mediastinum: Mediastinal contours appear similar. There is rightward shift of the right cardiac bord er. Heart appears prominent size. Bones and chest wall: No suspicious bony abnormalities. Soft tissues appear unremarkable. IMPRESSION: Chronic large left pleural effusion. Left pleural thickening. Hazy left lung airspace opacity. This is likely due to edema and/or atelectasis. Similar rightward shift of the cardiac border. Patient would likely benefit from CT of the chest with IV contrast. Reviewed by: Ed Marcus MD on 03/15/2021 9:54 AM [facility] Approved by: Ed Marcus MD on 03/15/2021 9:54 AM [facility] Station ID: [id number]
== END 2021-03-15 09:00 | disposition home or self-care (01) ==
LOC: DI.N 08:59
PROVIDERS: ATTEND Family Medicine
DX: C45.0 Mesothelioma of pleura (principal); J91.8 Pleural effusion in other conditions classified elsewhere; R91.8 Other nonspecific abnormal finding of lung field; I47.1 Supraventricular tachycardia; I10 Essential (primary) hypertension; E03.9 Hypothyroidism, unspecified; G47.33 Obstructive sleep apnea (adult) (pediatric)
CPT/HCPCS: 36415; 80053; 84439; 84443; 84481; 85025

== ENCOUNTER 2021-03-23 09:20 | Outpatient (CLI) | payer MEDICARE, OTHER ==
[2021-03-23 13:49] LABS: BASOPHILS # (AUTO) 0.1 10^3/uL (0.0-0.1); BASOPHILS % (AUTO) 0.8 %; EOSINOPHILS # (AUTO) 0.2 10^3/uL (0.0-0.7); EOSINOPHILS % (AUTO) 1.3 %; HCT - HEMATOCRIT 38.3 % (37.0-47.0); HGB - HEMOGLOBIN 11.9 g/dL (12.0-16.0); LYMPHOCYTES # (AUTO) 1.5 10^3/uL (1.5-3.5); LYMPHOCYTES % (AUTO) 12.4 %; MEAN CORPUSCULAR HEMOGLOBIN 28.6 pg (27.0-31.0); MEAN CORPUSCULAR HGB CONC 31.1 g/dL (32.0-36.0); MEAN CORPUSCULAR VOLUME 92.1 fL (81.0-99.0); MEAN PLATELET VOLUME 8.8 fL (7.9-10.8); MONOCYTES # (AUTO) 0.9 10^3/uL (0.0-1.0); MONOCYTES % (AUTO) 7.7 %; NEUTROPHILS # (AUTO) 9.4 10^3/uL (1.5-6.6); PLT - PLATELET COUNT 615 10^3/uL (130-450); RED BLOOD COUNT 4.16 10^6/uL (4.20-5.40); RED CELL DISTRIBUTION WIDTH 16.4 % (12.0-15.0); WHITE BLOOD COUNT 12.2 x10^3/uL (4.8-10.8)
[2021-03-23 14:02] LABS: ALBUMIN 3.2 g/dL (3.2-5.5); ALBUMIN/GLOBULIN RATIO 0.7 (1.0-2.2); BILIRUBIN,TOTAL 0.4 mg/dL (0.2-1.0); CALCIUM 10.2 mg/dL (8.5-10.3); CREATININE 0.8 mg/dL (0.4-1.0); POTASSIUM 4.8 mmol/L (3.5-5.0); TOTAL PROTEIN 7.7 g/dL (6.7-8.2)
== END 2021-03-23 09:21 | disposition home or self-care (01) ==
LOC: LAB.N 09:20
PROVIDERS: ATTEND Nurse Practitioner
DX: C45.9 Mesothelioma, unspecified (principal)
CPT/HCPCS: 36415; 80053; 85025

== ENCOUNTER 2021-07-02 09:27 | Outpatient (CLI) | payer MEDICARE, OTHER ==
[2021-07-02 10:01] VITALS: BP 123/78
--- NOTE | 2021-07-02 10:01 | SLEEP CARE CONSULTATION ---
Information from patient questionnaire entered by Jake Locke MA. I have reviewed and concur with the information entered by Jake Locke MA. This document represents the service I personally performed and the decisions made by , Beatriz Weber ARNP. History of Present Illness Service Date and Time: 07/02/2021 0927 Previous diagnosis: Mild, Obstructive Sleep Apnea-Hypopnea Syndrome AHI: 11.7 (in 2015) Reason for follow up: first compliance ( SET UP, ELIDA, NEED CHIP, ) Equipment type: CPAP Equipment obtained from: Other ([email or web address]; got supplies with new device) Mask style: Nasal Backup mask available: Yes (other mask) Last cushion change: 1 month Prior sleep studies: Yes Year and Where: 2015 - [facility] Type of Sleep Study: Polysomnography HPI additional information: OBEY GALLEGOS was diagnosed to have mild, AHI 11.7, obstructive sleep apnea- hypopnea syndrome and returned today for CPAP therapy first compliance after updating device (Elida) follow-up. Sleep Study - Results Type of Sleep Study: Polysomnography Prior sleep studies: Yes Year and Where: 2015 - [facility] CPAP Compliance Data - Data Reviewed with Patient Average duration of nightly device use: 8 hours 17 minutes Compliance rate %: 85.6 (90 days ) Current pressure setting (cmH2O): 9-12 Average residual AHI: 0.8 Average large leak: 9.2 LPM Subjective Patient concerns: reports: air blowing in eyes (has dry eyes-uses gel in eyes every night and a sleeping mask), dry mouth, nose, throat. denies: aerophagia, mask discomfort, mask leak noise, condensation in mask/hose, nasal congestion, epistaxis, other (she tapes her mouth closed) Observed to snore while using device: No Current pressure setting perceived as: comfortable On therapy, patient: reports: sleeping better, awakening more refreshed, being more awake and alert during the day, more rested overall, other (does not wake up to go to the bathroom). denies: drowsiness while driving Initial [place] Sleepiness Scale score: 4 (in 2015) Current [place] Sleepiness Scale score: 2 (2021) Allergies and Home Medications Home medication list reviewed: Yes (on chemotherapy for last year for Mesothelioma) Allergy and home medication list: Allergies No Known Drug Allergies Allergy (Verified 04/29/17 09:49) Review of Systems Review of systems same as previous: Yes (Mesothelioma diagnosed 2 years ago; since Feb lungs only inflate 15%) Physical Exam Vital signs obtained and entered by: LAQUITA AMAYA Blood Pressure: 123/78 (RIGHT , PULSE 78, RESP 20, ) Cuff size: wrist Heart Rate: 79 O2 Saturation: 97 (PAPER MASK) Height: 5 ft 4 in Weight: 124 lb (CLOTHES) Body Mass Index: 21.2 BMI Classification: Healthy weight Impression and Plan 1. Obstructive Sleep Apnea-Hypopnea Syndrome, mild, with good treatment compliance and good apnea control. On CPAP therapy, the patient has better sleep quality and is more rested overall. Patient has problem with dry eyes. She is n ot sure that it is related to the CPAP. She does use gel eye drops nightly and wears a sleeping mask. She is seeing an eye doctor for her dry eyes. Her average mask leak time is 0 minutes, so I am not sure she is getting much air from the mask leaking into her eyes. Patient is happy with her new Elida II machine. She did use her old Dreamstation when she went to [place] on vacation a couple months ago. I cautioned her about continuing usage of this recalled device. She voiced understanding. Patient's apnea severity and rationale for treatment to reduce apnea, improve sleep quality and reduce cardiovascular and cerebrovascular events was reviewed. I also reviewed the benefit of consistent device use of CPAP for hypertension. * Continue auto CPAP pressure at 9-12 cmH2O * Notify me if snoring with mask or feeling that the pressure is too much or too little * Maintain a healthy weight * Call this office if any problems using CPAP * Return for follow up in 1 year, or sooner if concerns arise Counseling Topics: Spare mask, Weight control Visit Type: In Office Time Spent with Patient (minutes): 24 Provider Statement: I spent 100% of the Face to Face Visit with the patient with greater than 50% spent counseling the patient and coordination of care.
== END 2021-07-02 09:28 | disposition home or self-care (01) ==
LOC: SC 09:27
PROVIDERS: ATTEND Nurse Practitioner Family
DX: G47.33 Obstructive sleep apnea (adult) (pediatric) (principal)
CPT/HCPCS: 99213; G0463; 99212

== ENCOUNTER 2021-09-05 07:26 | Outpatient (CLI) | payer MEDICARE, OTHER ==
[2021-09-05 11:53] LABS: BASOPHILS # (AUTO) 0.1 10^3/uL (0.0-0.1); BASOPHILS % (AUTO) 0.7 %; EOSINOPHILS # (AUTO) 0.1 10^3/uL (0.0-0.7); EOSINOPHILS % (AUTO) 1.2 %; HCT - HEMATOCRIT 36.8 % (37.0-47.0); HGB - HEMOGLOBIN 12.2 g/dL (12.0-16.0); LYMPHOCYTES % (AUTO) 11.2 %; MEAN CORPUSCULAR HEMOGLOBIN 32.4 pg (27.0-31.0); MEAN CORPUSCULAR HGB CONC 33.2 g/dL (32.0-36.0); MEAN CORPUSCULAR VOLUME 97.6 fL (81.0-99.0); MEAN PLATELET VOLUME 10.3 fL (7.9-10.8); MONOCYTES # (AUTO) 0.9 10^3/uL (0.0-1.0); NEUTROPHILS # (AUTO) 6.5 10^3/uL (1.5-6.6); NEUTROPHILS % (AUTO) 76.4 %; PLT - PLATELET COUNT 389 10^3/uL (130-450); RED BLOOD COUNT 3.77 10^6/uL (4.20-5.40); RED CELL DISTRIBUTION WIDTH 14.9 % (12.0-15.0); WHITE BLOOD COUNT 8.5 x10^3/uL (4.8-10.8)
[2021-09-05 12:23] LABS: ALBUMIN 3.7 g/dL (3.2-5.5); BILIRUBIN,TOTAL 0.7 mg/dL (0.2-1.0); CALCIUM 10.3 mg/dL (8.5-10.3); CREATININE 0.8 mg/dL (0.4-1.0); POTASSIUM 4.4 mmol/L (3.5-5.0); TOTAL PROTEIN 7.3 g/dL (6.7-8.2)
[2021-09-05 12:25] LABS: THYROID STIMULATING HORMONE 6.55 uIU/mL (0.34-5.60)
[2021-09-05 12:26] LABS: FREE T3 2.64 pg/mL (2.5-3.9)
[2021-09-05 12:27] LABS: FREE T4 (FREE THYROXINE) 1.26 ng/dL (0.58-1.64)
== END 2021-09-05 07:27 | disposition home or self-care (01) ==
LOC: LAB.N 07:26
PROVIDERS: ATTEND Family Medicine
DX: I10 Essential (primary) hypertension (principal); C45.0 Mesothelioma of pleura; J91.8 Pleural effusion in other conditions classified elsewhere; E03.9 Hypothyroidism, unspecified; I47.1 Supraventricular tachycardia; G47.33 Obstructive sleep apnea (adult) (pediatric)
CPT/HCPCS: 36415; 80053; 84439; 84443; 84481; 85025

== ENCOUNTER 2021-09-23 10:28 | Emergency (ER) | payer MEDICARE, OTHER ==
[2021-09-23 10:54] LABS: BASOPHILS # (AUTO) 0.1 10^3/uL (0.0-0.1); BASOPHILS % (AUTO) 0.5 %; EOSINOPHILS % (AUTO) 0.4 %; HCT - HEMATOCRIT 33.8 % (37.0-47.0); HGB - HEMOGLOBIN 11.4 g/dL (12.0-16.0); LYMPHOCYTES # (AUTO) 0.8 10^3/uL (1.5-3.5); LYMPHOCYTES % (AUTO) 7.1 %; MEAN CORPUSCULAR HEMOGLOBIN 33.1 pg (27.0-31.0); MEAN CORPUSCULAR HGB CONC 33.7 g/dL (32.0-36.0); MEAN CORPUSCULAR VOLUME 98.3 fL (81.0-99.0); MEAN PLATELET VOLUME 8.9 fL (7.9-10.8); MONOCYTES # (AUTO) 0.5 10^3/uL (0.0-1.0); MONOCYTES % (AUTO) 4.6 %; NEUTROPHILS # (AUTO) 9.5 10^3/uL (1.5-6.6); NEUTROPHILS % (AUTO) 86.6 %; NRBC ABSOLUTE COUNT (AUTO) 0.03 x10^3/uL; NUCLEATED RED BLOOD CELLS AUTO 0.3 /100WBC; PLT - PLATELET COUNT 450 10^3/uL (130-450); RED BLOOD COUNT 3.44 10^6/uL (4.20-5.40); RED CELL DISTRIBUTION WIDTH 14.9 % (12.0-15.0)
--- NOTE | 2021-09-23 11:07 | XRAY Report ---
PROCEDURE: Chest 1 View X-Ray INDICATIONS: Chest pain TECHNIQUE: 3 views of the chest was acquired. COMPARISON: 05/24/2019, 03/14/2020, 03/15/2021 FINDINGS: Surgical changes and devices: None. Lungs and pleura: Chronic moderate left-sided pleural effusion and hazy opacities in left lung field is again seen now significantly changed from prior study concerning for pulmonary edema and underlyin g patchy infiltrate/atelectasis. Mediastinum: Mildly tortuous thoracic aorta is again seen. Heart size is markedly enlarged. Bones and chest wall: No suspicious bony lesions. Overlying soft tissues appear unremarkable. IMPRESSION: 1. Persistent moderate to large left pleural effusion with left sided atelectasis and patchy infiltra te/atelectasis. No gross pneumothorax. Right lung is clear. 2. Chronic marked cardiomegaly. Reviewed by: Vamshi Lynne MD on 09/23/2021 10:05 AM [facility] Approved by: Vamshi Lynne MD on 09/23/2021 10:05 AM [facility] Station ID: [id number]
--- NOTE | 2021-09-23 11:15 | ED Physician Documentation ---
PD HPI DYSPNEA - Stated complaint Stated Complaint: SOA/BACK PX - Chief complaint Chief Complaint: Cardiac - History obtained from History obtained from: Patient - History of Present Illness Timing - onset: How many days ago (7) Timing - onset during: Light activity - Additional information Additional information: 81-year-old female with history of mesothelioma on daily oral chemotherapy pill, recurrent left-sided pleural effusion presents for evaluation of 1 week of gradually worsening shortness of breath. Patient states that even light activity cause her to be very fatigued and short of breath. Patient states that she just had a conversation with her oncologist, who states that her oral chemotherapy pills do not seem to be working anymore and the patient should be considering hospice at this time. Patient also endorses bilateral lower extremity swelling. She states that she has chronic lower extremity swelling, but it is slightly worse than usual. Denies chest pain, orthopnea, syncope, other complaints at this time. Review of Systems Ten Systems: 10 systems reviewed and negative Constitutional: denies: Fever, Chills, Myalgias, Fatigue, Weight Loss Eyes: denies: Loss of vision, Decreased vision, Photophobia, Discharge Ears: denies: Loss of hearing, Ear pain, Drainage/discharge, Tinnitus/ringing, Foreign body Nose: denies: Rhinorrhea / runny nose, Congestion, Foreign Body Throat: denies: Dental pain / toothache, Oral lesions / sores, Sore throat Cardiac: reports: Pedal edema. denies: Chest pain / pressure, Palpitations, Calf pain Respiratory: reports: Dyspnea. denies: Cough, Hemoptysis, Wheezing GI: denies: Nausea, Vomiting, Constipation, Diarrhea Musculoskeletal: denies: Neck pain, Back pain, Extremity pain, Joint pain PD PAST MEDICAL HISTORY - Past Medical History Past Medical History: Yes Cardiovascular: Hypertension Respiratory: Other Endocrine/Autoimmune: HyPOthyroidism Other Past Medical History: mesothelioma - Past Surgical History Past Surgical History: Yes HEENT: Rhinoplasty, Other - Present Medications Home Medications: Ambulatory Orders Medication Instructions Recorded Confirmed Calcium Carbonate [[id number]] 500 mg PO TID 04/28/17 09/23/21 Cholecalciferol (Vitamin D3) 1,000 unit PO DAILY 04/28/17 09/23/21 [Vitamin D3] Levothyroxine [Synthroid] 100 mcg PO DAILY 04/28/17 09/23/21 Multivitamin [Multivitamins] 1 each PO DAILY 04/28/17 09/23/21 Bloomery-3/Dha/Epa/Fish Oil [Bloomery 3 1 each PO DAILY 04/28/17 09/23/21 500 Softgel] Turmeric Root Extract [Turmeric] 500 mg PO DAILY 04/28/17 09/23/21 lisinopriL [Lisinopril] 20 mg PO DAILY 04/28/17 09/23/21 amLODIPine [Norvasc] 2.5 mg ORAL DAILY 04/29/17 09/23/21 Amox/Clav 875/125 [Augmentin] 1 each PO Q12H #14 tablet 09/23/21 Doxycycline Hyclate 100 mg PO BID #14 tab.sr 09/23/21 hydroCHLOROthiazide [Hydrodiuril] 25 mg PO DAILY 09/23/21 09/23/21 - Allergies Allergies/Adverse Reactions: Allergies Allergy/AdvReac Type Severity Reaction Status Date / Time No Known Drug Allergies Allergy Verified 09/23/21 10:40 - Social History Does the pt smoke?: No Smoking Status: Never smoker Does the pt drink ETOH?: No Does the pt have substance abuse?: No - Immunizations Immunizations are current?: Yes PD ED PE NORMAL - Vitals Vital signs reviewed: Yes - General General: Alert and oriented X 3, No acute distress, Well developed/nourished - HEENT HEENT: Atraumatic, PERRL, EOMI, Ears normal - Neck Neck: Supple, no meningeal sign, No bony TTP, No adenopathy - Cardiac Cardiac: No murmur, Strong equal pulses, Other (irregularly irregular) - Respiratory Respiratory: No respiratory distress, Other (L sided crackles) - Abdomen Abdomen: Soft, Non tender, Non distended - Back Back: No CVA TTP, No spinal TTP - Derm Derm: Normal color, No rash - Extremities Extremities: No deformity, No tenderness to palpate, Normal ROM s pain, Other (trace pitting edema to mid-thigh) - Neuro Neuro: Alert and oriented X 3, legal recruiter 2-12 intact, No motor deficit, No sensory deficit, Normal speech - Psych Psych: Normal mood, Normal affect Results - Vitals Vitals: Vital Signs - 24 hr 09/23/21 09/23/21 09/23/21 10:37 11:10 11:24 Temperature 36.4 C L Heart Rate 88 85 87 Respiratory 20 20 20 Rate Blood Pressure 136/87 H 123/76 123/76 O2 Saturation 100 98 97 09/23/21 09/23/21 09/23/21 11:30 12:00 12:30 Temperature 36.3 C L Heart Rate 85 83 78 Respiratory 16 24 30 H Rate Blood Pressure 122/75 115/73 118/70 O2 Saturation 97 98 97 09/23/21 09/23/21 09/23/21 13:00 13:30 14:16 Temperature 36.4 C L Heart Rate 80 79 97 Respiratory 28 H 24 20 Rate Blood Pressure 119/79 122/72 136/67 H O2 Saturation 97 98 94 09/23/21 15:30 Temperature Heart Rate 86 Respiratory 20 Rate Blood Pressure 120/73 O2 Saturation 98 Oxygen O2 Source Room air - EKG (time done) 1035 Rate: Rate (enter#) (86) Rhythm: Atrial fibrillation [place]: Normal Intervals: Normal [place] QRS: Normal Ischemia: Normal ST segments - Labs Labs: Laboratory Tests 09/23/21 09/23/21 09/23/21 10:48 10:48 11:08 WBC 11.0 H RBC 3.44 L Hgb 11.4 L Hct 33.8 L MCV 98.3 MCH 33.1 H MCHC 33.7 RDW 14.9 Plt Count 450 MPV 8.9 Neut # (Auto) 9.5 H Lymph # (Auto) 0.8 L Barn[place] # (Auto) 0.5 Eos # (Auto) 0.0 Baso # (Auto) 0.1 Absolute Nucleated RBC 0.03 Nucleated RBC % 0.3 PT 11.6 INR 1.0 APTT 27.2 Sodium 126 L Potassium 4.1 Chloride 89 L Carbon Dioxide 26 Anion Gap 11.0 BUN 25 H Creatinine 0.9 Estimated GFR (MDRD) 60 L Glucose 119 H Calcium 9.8 Total Bilirubin 0.4 AST 26 ALT 38 Alkaline Phosphatase 162 H Troponin I High Sens B-Natriuretic Peptide Total Protein 7.0 Albumin 3.2 Globulin 3.8 Albumin/Globulin Ratio 0.8 L Lipase 24 09/23/21 09/23/21 11:08 11:08 WBC RBC Hgb Hct MCV MCH MCHC RDW Plt Count MPV Neut # (Auto) Lymph # (Auto) [place] # (Auto) Eos # (Auto) Baso # (Auto) Absolute Nucleated RBC Nucleated RBC % PT INR APTT Sodium Potassium Chloride Carbon Dioxide Anion Gap BUN Creatinine Estimated GFR (MDRD) Glucose Calcium Total Bilirubin AST ALT Alkaline Phosphatase Troponin I High Sens 6.0 B-Natriuretic Peptide 544 H Total Protein Albumin Globulin Albumin/Globulin Ratio Lipase PD MEDICAL DECISION MAKING - ED course Complexity details: reviewed old records, reviewed results, re-evaluated pat ient, considered differential, d/w patient, d/w family ED course: Patient with mesothelioma presenting for shortness of breath and lower extremity swelling. Patient is saturating well on room air, speaking in complete sentences without difficulty. Patient states that her dyspnea is when she is trying to do work around her house. Chest x-ray shows large left-sided pleural effusion, seen on previous x-rays. Patient states that she has had to have her effusion drained in the past. We will contact interventional radiology for drainage of this effusion. Other labs are relatively unremarkable. Patient continues to be in A. fib, which she states she has never previously been diagnosed with. Hemodynamically stable, rate is controlled without any interventions. I received a call from radiology stating that while the pleural effusion on x- ray appears large, when it is ultrasounded it is actually much smaller in appearance and not a good candidate for drainage. In addition the effusion appears to have some septations. Question the chronicity of this, patient states that she has had difficulty with drainage in the past due to severe pain. Discussed results of all labs and imaging with patient and her daughter at bedside. At this time patient has known chronic mesothelioma that has failed chemotherapy. This could be secondary to progressive nature of mesothelioma, however cannot rule out pneumonia given the septations in the pleural effusion. Patient hemodynamically stable, will err on side of caution and treat with oral antibiotics. Patient was counseled that she will need to follow-up with her primary care physician about atrial fibrillation. Given that the patient has a chronic condition that her oncologist recommends placement on hospice for she will need to have decision-making with her doctors about whether or not she would like to pursue treatment for A. fib. In the meantime patient was counseled to increase her home hydrochlorothiazide dose for improvement of her lower extremity swelling. Departure - Departure Disposition: 01 Home, Self Care Clinical Impression: Dyspnea, Pleural effusion, Atrial fibrillation Condition: Stable Instructions: Effusion Pleural, Atrial Fibrillation Dc, ED Afib Prescriptions: Amox/Clav 875/125 [Augmentin] 1 each PO Q12H #14 tablet Doxycycline Hyclate 100 mg PO BID #14 tab.sr Comments: YOU ARE BEING SENT HOME WITH 2 ANTIBIOTICS TO TREAT PNEUMONIA. FINISH ALL OF THESE MEDICATIONS. YOU WERE FOUND TO BE IN ATRIAL FIBRILLATION HERE IN THE ER. YOU WILL NEED TO FOLLOW UP WITH YOUR PRIMARY CARE DOCTOR AND POSSIBLY CARDIOLOGY FOR FURTHER EVALUATION. CALL YOUR PRIMARY DOCTOR SOON POSSIBLE TO SET UP A FOLLOW-UP APPOINTMENT Discharge Date/Time: 09/23/21 15:49
[2021-09-23 11:28] LABS: ALBUMIN 3.2 g/dL (3.2-5.5); ALBUMIN/GLOBULIN RATIO 0.8 (1.0-2.2); BILIRUBIN,TOTAL 0.4 mg/dL (0.2-1.0); CALCIUM 9.8 mg/dL (8.5-10.3); CREATININE 0.9 mg/dL (0.4-1.0); POTASSIUM 4.1 mmol/L (3.5-5.0)
[2021-09-23 12:30] LABS: PT - PROTHROMBIN TIME 11.6 secs (9.9-12.6)
[2021-09-23 12:37] LABS: PARTIAL THROMBOPLASTIN TIME 27.2 secs (24.9-33.3)
[2021-09-23] MEDS ORDERED: lidocaine 1% 20 ML MDV ONE (13:38)
[2021-09-23 15:35] VITALS: BP 120/73
--- NOTE | 2021-09-23 15:47 | Ultrasound Report ---
PROCEDURE: Ultrasound Chest INDICATIONS: LT PLEURAL EFFUSION. Shortness of breath. TECHNIQUE: Real-time scanning of the left hemithorax was performed. COMPARISON: Chest radiographs same day. FINDINGS: A small-moderate left pleural effusion is present, smaller in appearance than suggested by the same d ay chest radiographs. Additionally, multiple thin septations are visualized within the effusion. IMPRESSION: Small-moderate loculated left pleural effusion. The relatively small size of the effusion and likelih ood of incomplete drainage of the effusion given its loculation were discussed with the patient. In l ight of these factors, the patient declined thoracentesis at this time. Discussed with ordering provider by Dr. Foote at 1451 hours on 09/23/2021. Reviewed by: Jones Foote MD on 09/23/2021 3:46 PM PDT Approved by: Jones Foote MD on 09/23/2021 3:46 PM PDT Station ID: [id number]
== END 2021-09-23 15:49 | disposition home or self-care (01) ==
LOC: ED 10:28
DX: C45.9 Mesothelioma, unspecified (principal); R06.09 Other forms of dyspnea; J90 Pleural effusion, not elsewhere classified; I48.91 Unspecified atrial fibrillation; I10 Essential (primary) hypertension
CPT/HCPCS: 36415; 80053; 83690; 83880; 84484; 85025; 85610; 85730; 93005; 99284